=== PATIENT | female | born 1940 | race Caucasian/White ===

== ENCOUNTER 2017-07-24 08:57 | Day surgery (SDC) | payer MEDICARE ==
[~2017-07-24] VITALS: Ht 154.9 cm; Wt 75.0 kg
[2017-07-24] VITALS (10 sets, daily range): BP systolic 125–148; BP diastolic 45–71
[2017-07-24] MEDS ORDERED: ATOR10TA87 PO (09:28)
[2017-07-24] MEDS ORDERED: CLOP75TA33 PO (09:28)
[2017-07-24] MEDS ORDERED: ASPI-611 PO (09:28)
[2017-07-24] MEDS ORDERED: METO25TA6 PO (09:28)
[2017-07-24] MEDS ORDERED: LANTUS SQ (09:28)
[2017-07-24] MEDS ORDERED: METF10004 PO (09:28)
[2017-07-24] MEDS ORDERED: sod bicarbonate 150mEq in D5W 1,150 ML IV ONE (09:40)
[2017-07-24 09:44] LABS: BASOPHILS % (AUTO) 0.5 % (0-1); EOSINOPHILS # (AUTO) 0.1 X10'3 (0-0.9); EOSINOPHILS % (AUTO) 1.7 % (0-6); HEMATOCRIT 36.6 % (35.0-45.0); HEMOGLOBIN 12.3 g/dl (12.0-16.0); LYMPHOCYTES % (AUTO) 25.1 % (21-51); MEAN CORPUSCULAR HGB CONC 33.7 % (33.0-36.5); MEAN CORPUSCULAR VOLUME 86.2 FL (78-98); MEAN PLATELET VOLUME 6.9 FL (7.4-10.4); MONOCYTES # (AUTO) 0.4 X10'3 (0-0.9); MONOCYTES % (AUTO) 5.7 % (2-12); NEUTROPHILS # (AUTO) 5.2 X10'3 (1.8-7.7); PLATELET COUNT 244 X10'3 (140-440); RED BLOOD COUNT 4.24 X10'6 (4.20-5.60); RED CELL DISTRIBUTION WIDTH 13.5 % (11.5-14.5); WHITE BLOOD COUNT 7.8 X10'3 (4.5-11.0)
[2017-07-24 09:49] LABS: ALBUMIN 3.9 G/DL (3.4-5.0); ANION GAP 9 (8-16); BLOOD UREA NITROGEN 22 MG/DL (7-18); BUN/CREATININE RATIO 17.1 (6.6-38.0); CALCIUM 9.6 MG/DL (8.5-10.1); CHLORIDE 104 MMOL/L (99-107); CREATININE 1.29 MG/DL (0.40-0.90); GLUCOSE 177 MG/DL (70-104); MAGNESIUM 1.6 MG/DL (1.5-2.4); PARTIAL THROMBOPLASTIN TIME 24 SECONDS (22-32); POTASSIUM 4.4 MMOL/L (3.5-5.1); PROTHROMBIN TIME 9.9 SECONDS (9.0-12.0); SODIUM 139 MMOL/L (135-145); eGFR 40 ML/MIN
[2017-07-24] MEDS ORDERED: LIDOcaine 1% w/EPI 1:100,000 30ml vial (MDV) ONE (10:48)
[2017-07-24] MEDS ORDERED: fentaNYL/PF 50MCG/1 ML 2ML syringe ONE (10:48)
[2017-07-24] MEDS ORDERED: iohexol 350MG/ML 100ml bottle IV ONE ×2 (10:48→11:21)
[2017-07-24] MEDS ORDERED: midazolam 2 mg/2 ml injection ONE ×2 (10:48→11:04)
[2017-07-24] MEDS ORDERED: iohexol 350 MG/ML 50ML vial IV ONE ×2 (10:58→11:17)
[2017-07-24] MEDS ORDERED: heparin 1,000unit/ml 10ml vial 10 ML ONE (11:28)
[2017-07-24] MEDS ORDERED: clopidogrel 300mg tablet ONE (11:45)
[2017-07-24] MEDS ORDERED: ketorolac tromethamine 15mg/ml inj. IV ONE (14:55)
== END 2017-07-24 17:30 | disposition home or self-care (01) ==
LOC: SSTAY O 08:57
PROVIDERS: ATTEND Internal Medicine Cardiovascular Disease
DX: I25.810 Atherosclerosis of coronary artery bypass graft(s) without angina pectoris (principal); I10 Essential (primary) hypertension; E78.5 Hyperlipidemia, unspecified; E11.9 Type 2 diabetes mellitus without complications; I25.82 Chronic total occlusion of coronary artery; Z86.74 Personal history of sudden cardiac arrest; Z87.891 Personal history of nicotine dependence; Z98.41 Cataract extraction status, right eye; Z98.42 Cataract extraction status, left eye; Z79.84 Long term (current) use of oral hypoglycemic drugs; Z95.1 Presence of aortocoronary bypass graft; Z95.5 Presence of coronary angioplasty implant and graft; Z85.3 Personal history of malignant neoplasm of breast; Z90.710 Acquired absence of both cervix and uterus; Z79.82 Long term (current) use of aspirin; Z79.01 Long term (current) use of anticoagulants; Z79.4 Long term (current) use of insulin; Z90.10 Acquired absence of unspecified breast and nipple; Z79.899 Other long term (current) drug therapy; Z98.890 Other specified postprocedural states
CPT/HCPCS: 36415; 80048; 82948; 83735; 85025; 85610; 85730; 93005; 93459; 99152; 99153; A6257; C1725; C1760; C1769; C1874; C1894; C9600; C9601; J1644; J1885; J2250; J3010; J3490; J7030; Q9967; A4620

== ENCOUNTER 2023-05-12 11:11 | Emergency (ER) | payer BC, MEDICARE ==
[~2023-05-12] VITALS: Ht 154.9 cm; Wt 75.5 kg
[~2023-05-12 11:11] MED LIST: ASPI-611 PO; ATOR10TA87 PO; CLOP75TA33 PO; LANTUS SQ; LOP25T PO; METF-438 PO
[2023-05-12] MEDS ORDERED: AZIT-21 PO (12:34)
[2023-05-12 12:47] VITALS: BP 102/52; PULSE 96; RESP 16; TEMP 97.9; O2SAT 94
== END 2023-05-12 12:50 | disposition home or self-care (01) ==
LOC: ER 11:12
DX: J20.9 Acute bronchitis, unspecified (principal); Z20.822 Contact with and (suspected) exposure to COVID-19; I50.9 Heart failure, unspecified; E11.9 Type 2 diabetes mellitus without complications; Z79.82 Long term (current) use of aspirin; Z79.899 Other long term (current) drug therapy; Z79.2 Long term (current) use of antibiotics
CPT/HCPCS: 36415; 71045; 87811; 99284